=== PATIENT | male | born 1955 | race African-American/Black ===

== ENCOUNTER 2022-02-07 08:21 | Observation (INO) ==
--- NOTE | 2022-02-06 08:48 | Anesthesiology Consultation ---
Date of Service February 06, 2022 Assessment & Plan (1) Encounter for pre-operative examination: Chart Review Chart Review: Acceptable Risk for Surgery and Patient NOT seen in Pre Admission Testing Pt requiring admission post operatively. Plan for recheck with COVID [place] AM DOS due to possibility that patient may have a roommate. OR aware. [place] order placed - Due to age- will check CBC with diff DOS (not done preoperatively) Per nursing assessment 02/05/22, patient denies any recent travel. No known Covid positive exposures or Covid related symptoms. No known Covid infection in the past 90 days. Pt is fully vaccinated for Covid. Preop Covid testing 02/05/22= negative History Surgery Operation Date: 02/07/22 11:10 Proposed Procedures p Laparoscopic Robotic Assisted Radical Retropubic Prostatectomy, Possible Open, Possible Pelvic Lymph Node Dissection, Possible Suprapubic Tube Placement - Jonathan Sarabia MD Height/Weight Height: 5 ft 11.5 in Weight: 88.451 kg Allergies Allergy/AdvReac Type Severity Reaction Status Date / Time No Known Drug Allergies Allergy Verified 02/05/22 07:49 Medications Home Medications Medication Instructions Recorded Confirmed Last Taken amlodipine 10 mg tablet 10 mg PO QPM 12/26/21 02/05/22 Unknown aspirin 81 mg tablet,delayed 81 mg PO QPM 12/26/21 02/05/22 Unknown release (Adult Low Dose Aspirin) atorvastatin 10 mg tablet 10 mg PO QPM 12/26/21 02/05/22 Unknown hydrochlorothiazide 12.5 mg capsule 12.5 mg PO QPM 12/26/21 02/05/22 Unknown Past Medical History Medical History High cholesterol Hypertension Prostate cancer Past Family History Family History Father , 89yo Prostate cancer CHF (congestive heart failure) Mother , 78yo CHF (congestive heart failure) Sister No problems noted. Son No problems noted. Son No problems noted. Past Surgical History Surgical History History of colonoscopy Hx of cystoscopy with bx Hx of wisdom tooth extraction Social History Smoking Status: Never smoker Do You Dip or Chew Tobacco: No Hx Alcohol Use: Yes Alcohol type: beer alcohol intake frequency: a few times a week Hx Substance Use: No substance use type: does not use Testing Laboratory Results 02/04/22= SODIUM: 140 POTASSIUM: 3.8 CHLORIDE: 106 CO2: 31 BUN: 10 CREATININE: 1.1 GLUCOSE: 112 UA: Negative Electrocardiogram Date: 02/04/22 NSR with sinus arrhythmia at 68bpm Normal EKG per confirming provider Chest X-Ray Date: 02/05/22 Findings: + NAD Stress Test Date: 11/07/16 Type: exercise Stress EKG was negative for myocardial ischemia at 107% MPHR. Moderate level of exercise achieved. No symptoms reproduced with exercise. PVCs reproduced with exercise. Recommendations: Hypertensive response to exercise. Increase antihypertensive regimen.
[~2022-02-07 08:21] MED LIST: DEXAMETHASONE SOD INJ 4 MG/ML VIAL ONE; GLYCOPYRROLATE 0.2 MG/ML VIAL ONE; HEPARIN SOD 5,000 UNIT/0.5 ML VIAL SQ SCH; LACTATED RINGER'S 1,000 ML IV SCH; LIDOCAINE 2% 2 ML VIAL/AMP(20MG/ML) INFIL ONE; LR 15ML/HR IV SCH; MIDAZOLAM HCL 1 MG/ML 2ML VIAL ONE; NEOSTIGMINE METHYLSULFATE 1 MG/ML 10ML VIAL ONE; ONDANSETRON INJ 2 MG/ML 2 ML VIAL ONE; PROPOFOL IV EMULSION 10 MG/ML 20 ML VIAL IV ONE; ROCURONIUM BROMIDE 10 MG/ML 5 ML VIAL IV ONE; ceFAZolin 2000MG 2,000 MG/15 ML SYR IV SCH; fentaNYL citrate 100 MCG/2 ML VIAL ONE
[2022-02-07] MEDS ORDERED: BUPIVACAINE 0.5 % 5 MG/1 ML MPF 30ML VIAL ONE (08:40)
--- NOTE | 2022-02-07 08:49 | History & Physical Bridge Note ---
Date of Service February 07, 2022 History & Physical Bridge Note I have examined the patient, reviewed the History & Physical and in the interval since the performance of the History & Physical I have noted the following changes of clinical significance: no changes noted
[2022-02-07 09:12] LABS: Basophils # (auto) 0.07 K/uL (0-0.2); Basophils % (auto) 1.7 %; Eosinophils # (auto) 0.06 K/uL (0-0.50); Eosinophils % (auto) 1.4 %; Hematocrit (blood only) 45.5 % (40.1-51.0); Hemoglobin 15.3 g/dl (14.0-18.0); Immature Granulocytes # (auto) 0.01 K/uL (0.00-0.02); Immature Granulocytes % (auto) 0.2 %; Lymphocytes # (auto) 1.19 K/uL (1.2-3.4); Lymphocytes % (auto) 28.2 %; Mean Corpuscular Hemoglobin 31.3 pg (25.0-34.0); Mean Corpuscular Hgb Conc 33.6 g/dL (32.0-36.0); Mean Platelet Volume 9.5 fL (9.4-12.4); Monocytes % (auto) 14.2 %; Neutrophils # (auto) 2.29 K/uL (1.4-6.5); Neutrophils % (auto) 54.3 %; Platelet Count 175 K/uL (130-400); RDW Coefficient of Variation 13.8 % (11.5-14.5); RDW Standard Deviation 47.1 fL (36.4-46.3); Red Blood Count 4.89 M/uL (4.63-6.08); White Blood Count 4.22 K/ul (4.8-10.8)
[2022-02-07] MEDS ORDERED: ONDANSETRON INJ 2 MG/ML 2 ML VIAL IV PRN ×2 (09:21→15:48)
[2022-02-07] MEDS ORDERED: fentaNYL citrate 100 MCG/2 ML VIAL IV PRN (09:21)
[2022-02-07] MEDS ORDERED: HYDROmorphone INJ 2 MG/ML SYR/VIAL IV PRN (09:21)
[2022-02-07] MEDS ORDERED: PROMETHAZINE HCL 12.5 MG in SODIUM CHLORIDE 0.9% 50 ML IV PRN (09:21)
[2022-02-07] MEDS ORDERED: ePHEDrine sulfate 50 MG/ML AMP IV PRN (09:21)
[2022-02-07] MEDS ORDERED: ATROPINE SULFATE 0.1 MG/ML 10ML SYR IV PRN (09:21)
[2022-02-07] MEDS ORDERED: ROCURONIUM BROMIDE 10 MG/ML 5 ML VIAL IV ONE ×5 (10:51→13:08)
[2022-02-07] MEDS ORDERED: PROPOFOL IV EMULSION 10 MG/ML 20 ML VIAL IV ONE ×3 (10:55→13:08)
[2022-02-07] MEDS ORDERED: ePHEDrine sulfate 50 MG/ML AMP ONE (13:08)
[2022-02-07] MEDS ORDERED: ceFAZolin 2000MG 2,000 MG/15 ML SYR IV ONE (13:43)
[2022-02-07] MEDS ORDERED: fentaNYL citrate 100 MCG/2 ML VIAL ONE (14:36)
--- NOTE | 2022-02-07 15:10 | Operative Report ---
PG Post Operative Report Pre & Post Diagnosis Operation Date: 02/07/22 11:10 Pre-Op Diagnosis: Prostate Cancer Post-Op Diagnosis: Prostate Cancer I identified the patient and participated in the time-out.: Yes Procedure Operation Date: 02/07/22 11:10 Actual Procedures p Laparoscopic Robotic Assisted Radical Retropubic Prostatectomy, Bilateral Pelvic Lymph Node Dissection(Not Applicable) - Jonathan Sarabia MD Surgeon Jonathan Sarabia MD Admissions Counselor [facility] Estimated Blood Loss 100 Findings Consistent with Post-Op Diagnosis Specimens 1) periprostatic fat 2) prostate, vas deferens and seminal vesicles 3) right pelvic lymph nodes 4) left pelvic lymph nodes Drains Adng catheter per urethra with 10 mL in balloon Anesthesia Type General Complications none Disposition Accompanied Patient To Recovery: Yes Disposition: Recovery Room Indications This is a 66-year-old male, recently diagnosed with prostate cancer. After thorough discussion of his options, he presents to the OR today for robot- assisted radical prostatectomy and bilateral pelvic lymph node dissection. Description of Procedure The patient was identified in the preoperative holding area and informed consent was confirmed. He was then brought to the operating room where general anesthesia was initiated. He was placed supine on the operating room table with all pressure points appropriately padded. His abdomen and genitalia were prepped and draped in the usual sterile fashion and a timeout was performed. A 2 cm incision was made above the umbilicus and then a Veress needle was used to obtain access to the abdomen. Proper position was confirmed with the drop test and low initial insufflation pressure. The abdomen was insufflated with CO2 to a pressure of 12 mmHg. An 8 mm robotic port was placed in the incision and the robotic camera was inserted. The abdominal cavity was surveyed, demonstrating minimal adhesions and no injury to the abdominal viscera. The remaining robotic ports were placed under direct visualization, with 2 robotic ports on the left side and 1 robotic port on the right. A 12 mm design assistant port was placed on the right side as well, and a 5 mm design assistant port was placed in the right upper quadrant. The robot was then docked. There was some minor adhesions of the sigmoid to the left lateral wall of the pelvis. These adhesions were divided sharply. Using electrocautery, the bladder was then dropped from the anterior wall of the abdomen, exposing the space of Retzius. This dissection was carried down to expose the pelvic brim and subsequently the anterior surface of the prostate and the endopelvic fascia. The fat overlying the anterior of the prostate was removed and sent for pathologic analysis, labeled as 'periprostatic fat'. The endopelvic fascia was then divided on each side to expose the lateral aspects of the prostate and the lateral aspects of the pedicles. 3-0 V-Loc suture was used to ligate the dorsal venous complex to prevent backbleeding in subsequent steps. The fourth arm of the robot was then used to put some gentle traction on the bladder, and the bladder neck was identified. Using electrocautery, the anterior bladder neck was dissected to expose the Dang catheter, whose tip was removed from the bladder and held anteriorly. The posterior bladder neck dissection was then completed. This dissection was complicated by the presence of a median lobe of the prostate intruding into the bladder. The bladder mucosa was divided on the posterior aspect of the median lobe to expose the posterior surface of the prostate while maintaining a small bladder neck. At this point bilateral vas deferens were exposed and isolated. The vas deferens were cau terized and then divided. Bilateral seminal vesicles were dissected out as well. Denonvilliers fascia was then divided and the posterior prostate dissection was carried up as far as possible toward the urethra. The pedicles were then divided using combination of clips and sharp dissection, trying to use minimal electrocautery. On the right side a partial nerve sparing approach was performed. On the left side, due to the presence of higher grade prostate cancer, a non-nerve sparing approach was used. Attention was turned anteriorly and the dorsal venous complex was divided using sharp dissection and electrocautery. There was some residual bleeding from the dorsal venous complex which was stopped with a suture ligature. The urethra was isolated and then divided sharply and the remaining attachments of the prostate to the base of the pelvis were divided. At this point, the prostate was free and was placed in a specimen bag. Bilateral pelvic lymph node dissection was then performed, and the yuko tissue was sent for pathologic analysis. The pelvis was inspected and meticulous hemostasis was ensured. There was mild persistent bleeding from the pedicles which was oversewn using a 4-0 Monocryl suture. 3-0 Double-armed V-Loc suture was then used to re-anastomose the bladder neck with the urethra. Once this was complete, the anastomosis was tested by instilling 120 mL of normal saline into the bladder. Satisfied that the anastomosis was watertight, the new catheter balloon was inflated with 10 mL of normal saline. The robot was then undocked. The supraumbilical incision was extended and the prostate was extracted. 0 Vicryl suture was then used to close the fascia at this incision. All skin incisions were closed with 4-0 Monocryl suture and then a layer of Dermabond was applied. The patient was then awakened from anesthesia and was brought to the PACU in stable condition. I attest to the content of the Intraoperative Record and any orders documented therein. Any exceptions are noted below.
--- NOTE | 2022-02-07 15:28 | Anesthesiology Progress Note ---
Date of Service February 07, 2022 Anesthesia Post Procedure Vital Signs Vital Signs: Temp Pulse Resp BP Pulse Ox O2 Del Method O2 Flow Rate 02/07/22 15:25 97.3 F L 78 12 123/72 97 Room Air 02/07/22 15:15 83 18 130/79 100 Oxymask 12 02/07/22 15:05 82 22 129/77 100 Oxymask 02/07/22 14:56 98.1 F 88 18 119/77 98 Oxymask 02/07/22 08:52 98.2 F 82 20 172/96 H 96 Room Air Pain Intensity Abdomen: Pain Intensity: 3 Transfer of Care Handoff Completed per policy Notes Mental Status: alert / awake / arousable and participated in evaluation Patient Amnestic to Procedure: Yes Nausea / Vomiting: adequately controlled Pain: adequately controlled Airway Patency, RR, SpO2: stable & adequate BP & HR: stable & adequate Hydration State: stable & adequate Anesthetic Complications: no major complications apparent and Pt Satisfied with anesthetic care
[2022-02-07] MEDS ORDERED: POLYETHYLENE (MIRALAX) 17 GM PACK PO PRN (15:48)
[2022-02-07] MEDS ORDERED: IBUPROFEN 200 MG TAB PO PRN (15:48)
[2022-02-07] MEDS ORDERED: oxyCODONE HCL IR 5 MG TAB (IMMEDIATE RELEASE) PO PRN ×2 (15:48)
[2022-02-07] MEDS ORDERED: MoRPHine SULFATE 4 MG/ML 1 ML CARP\\VIAL IV PRN (15:48)
[2022-02-07] MEDS ORDERED: MoRPHine SULFATE 2 MG/ML CARP IV PRN (15:48)
[2022-02-07] MEDS: ceFAZolin 2000MG 2,000 MG/15 ML SYR IV SCH (17:19)
[2022-02-07] MEDS: LACTATED RINGER'S 1,000 ML IV SCH ×2 (17:19→21:38)
[2022-02-07] MEDS: DOCUSATE SODIUM 100 MG CAP PO SCH (20:27)
[2022-02-07] MEDS: ACETAMINOPHEN 325 MG TAB PO SCH (20:28)
[2022-02-07] MEDS: HEPARIN SOD 5,000 UNIT/0.5 ML VIAL SQ SCH (20:29)
[2022-02-07] MEDS ORDERED: ATORVASTATIN 10 MG TAB PO SCH (21:00)
[2022-02-07] MEDS ORDERED: hydroCHLOROthiazide 25 MG TAB PO SCH (21:00)
[2022-02-07] MEDS ORDERED: amLODIPine BESYLATE 5 MG TAB PO SCH (21:00)
[2022-02-08] MEDS: ceFAZolin 2000MG 2,000 MG/15 ML SYR IV SCH (00:22)
[2022-02-08] MEDS: ACETAMINOPHEN 325 MG TAB PO SCH ×2 (02:28→09:41)
[2022-02-08] MEDS: LACTATED RINGER'S 1,000 ML IV SCH (06:52)
--- NOTE | 2022-02-08 08:56 | Urology Progress Note ---
Date of Service February 08, 2022 Assessment & Plan (1) Prostate cancer: Plan: Doing well, POD#1 from robot-assisted radical prostatectomy Anticipate he will be ready for discharge today assuming breakfast goes well and he is able to ambulate. He will maintain the catheter for 10 to 14 days Will arrange further follow-up after that. Admission and Anticipated Discharge Date Admission Date: February 07, 2022 Subjective 66-year-old male, postop day 1 from robot-assisted radical prostatectomy Denies any fevers or chills Minimal pain this morning, taking Tylenol and ibuprofen. Had some nausea overnight but feeling better this morning, ready to try diet Has not been up and ambulating yet Physical Exam Physical Exam: Well-appearing, NAD Gastrointestinal (Abdomen): Soft, nondistended, really tender to palpation. Laparoscopic incisions covered with Dermabond with no bruising. Genitourinary: Dang catheter in place draining clear phuc urine Results & Data ([facility]) Vital Signs (Past 12 Hours) Vital Signs Temp Pulse Resp BP Pulse Ox O2 Del Method 02/08/22 07:30 Room Air 02/08/22 07:17 37.1 C 88 16 130/82 94 Room Air 02/08/22 03:18 37.3 C 85 16 124/72 93 Room Air 02/07/22 23:18 37.2 C 93 H 18 110/71 92 Room Air PG Care Time/CCT Total # of Minutes Spent Total Time Spent with Patient: Total time spent is greater than 50% in coordination of care (as documented) at patient's floor/unit and/or counseling patient: Coding Level of Care Code None Diagnoses Prostate cancer C61
[2022-02-08 08:58] LABS: Basophils # (auto) 0.01 K/uL (0-0.2); Basophils % (auto) 0.1 %; Hematocrit (blood only) 39.2 % (40.1-51.0); Hemoglobin 13.7 g/dl (14.0-18.0); Immature Granulocytes # (auto) 0.03 K/uL (0.00-0.02); Immature Granulocytes % (auto) 0.3 %; Lymphocytes # (auto) 0.91 K/uL (1.2-3.4); Lymphocytes % (auto) 10.6 %; Mean Corpuscular Hemoglobin 31.3 pg (25.0-34.0); Mean Corpuscular Hgb Conc 34.9 g/dL (32.0-36.0); Mean Corpuscular Volume 89.5 fL (80.0-100.0); Mean Platelet Volume 9.9 fL (9.4-12.4); Monocytes # (auto) 1.12 K/uL (0.24-0.82); Neutrophils # (auto) 6.54 K/uL (1.4-6.5); Platelet Count 181 K/uL (130-400); RDW Coefficient of Variation 14.1 % (11.5-14.5); RDW Standard Deviation 45.7 fL (36.4-46.3); Red Blood Count 4.38 M/uL (4.63-6.08); White Blood Count 8.61 K/ul (4.8-10.8)
--- NOTE | 2022-02-08 09:02 | Discharge Summary ---
Date of Service February 08, 2022 Admission HPI Per Admitting Provider This is a 66-year-old male recently diagnosed with prostate cancer. After thorough discussion of treatment options he presented to the OR on 02/07/2022 for robot-assisted radical prostatectomy and bilateral pelvic lymphadenectomy. For more details of the procedure see operative report. He was admitted postoperatively in good condition. Admission Exam Per Admitting Provider Constitutional well developed and well nourished; no acute distress Eyes + anicteric sclerae; pupils not irregular Respiratory normal respiratory effort; no respiratory distress, does not use accessory muscles and no cough Cardiovascular well perfused Gastrointestinal (Abdomen) Inspection/Auscultation: abdomen normal to inspection; abdomen not distended Musculoskeletal Extremities: extremities normal to inspection Skin normal turgor; no rashes and no lesions Neurologic moves all extremities and awake Psychiatric Orientation: alert and oriented x 3 Principal Diagnosis Prostate cancer Discharge Exam Well-appearing, NAD Gastrointestinal (Abdomen) Abdomen soft, nondistended, appropriately tender to palpation. Dermabond in place over incisions. Genitourinary Romero catheter in good position draining clear phuc urine. Discharge Data Allergies Allergy/AdvReac Type Severity Reaction Status Date / Time No Known Drug Allergies Allergy Verified 02/07/22 08:51 Procedures Performed Operation Date: 02/07/22 11:10 Actual Procedures p Laparoscopic Robotic Assisted Radical Retropubic Prostatectomy, Bilateral Pelvic Lymph Node Dissection(Not Applicable) - Jonathan Sarabia MD Hospital Course (1) Prostate cancer: Robot-assisted radical prostatectomy was performed on 02/07/2022. Patient tolerated the procedure well. On postop day 1 he was tolerating a diet, ambulating and his pain was well controlled. He was discharged home in good condition. Total Time Total Time Spent Total Time Spent (In Minutes): 15 Discharge Plan Discharge Items Patient Disposition: Home - Self-Care Reason For Visit: Prostate Cancer Discharge Diagnosis: Prostate cancer Activity: Per Instructions section Non-emergency contact: Urologist Call non-emergency contact if: your pain is not controlled and your temperature is above 101 Follow-up/Referrals: Yosi Renteria DO [Primary Care Provider] - Diet: Regular Addtl Attending Provider Instructions: The surgery you had was: Robot-assisted radical prostatectomy with bilateral pelvic lymph node dissection. Please take all medications as prescribed and keep all follow-ups as scheduled. Please call our office at [phone] with any questions, concerns or need to reschedule appointments for any reason. We are happy to assist you Medications: Please take all medications as prescribed. For pain control, you can take tylenol every 6 hours. You can also take ibuprofen every 6 hours. If you have been prescribed a narcotic pain medication, please take this according to the instructions on the label. You have been prescribed a single dose of antibiotics (Bactrim) to be taken 1 hour prior to your appointment for romero catheter removal. Activity: We recommend having someone with you for the first few days after surgery to help care for you. For the first 2 weeks after surgery, we would like you to get up and walk around your house. However, we recommend limit physical activity that would increase your heart rate. This will allow your body to rest and heal. Take naps if you feel tired. Don't lift anything heavier than 10 pounds, mow the law or ride a bicycle until your follow-up appointment. Please avoid long car rides. Home Care: Unless directed otherwise, drink 6 to 8 glasses of water a day (enough to keep your urine light colored). This will also help keep a healthy flow of urine. We recommend using a stool softener such as colace or miralax for the first two weeks to avoid constipation. Romero Catheter or Suprapubic Catheter care: Keep the catheter well secured with either a leg back or leg strap with large bag. Empty your bag when it's about half full. You may notice some blood in the bag. This is normal after surgery and while the catheter is in place. Use mild soap (such as Dove or Dial) and water to wash the catheter and the head of your penis daily, or more frequently if needed. Return to your normal diet, we encourage good protein intake to promote healing. You may shower as normal. Please avoid tub baths or soaking until catheter removed and incisions well healed. Wearing sweat pants while you have the catheter is recommended, they will be more comfortable. Follow-up We will have you come to the office in approximately 10-14 days for catheter removal. - Please remember to take your dose on antibiotics 1 hour prior to this appointment. At this visit we will plan to review the pathology results We will schedule an office visit in approximately 3 months with PSA prior. Call [facility] at [phone] right away if you have any of the following: Chest pain or trouble breathing (call 911 or go to the hospital) Fever of 101F or higher, uncontrolled vomiting Heavy bleeding, clots, or bright red blood from the catheter Catheter that falls out or stops draining Foul-smelling discharge from your catheter Redness, swelling, warmth, or increased pain at your incision site Drainage, pus, or bleeding from your incision Pending Studies at Discharge: No Stand-Alone Forms: [facility], Smoking Cessation Medications and DC Order Prescriptions: New sulfamethoxazole-trimethoprim [Bactrim DS] 800-160 mg tablet 1 tab PO ONCE 1 Days Qty: 1 0RF oxycodone 5 mg tablet 5 mg PO Q6H PRN (Reason: pain) Qty: 6 0RF Rx Instructions: for acute post-surgical pain, not managed by tylenol / ibuprofen Continued aspirin [Adult Low Dose Aspirin] 81 mg tablet,delayed release (DR/EC) 81 mg PO QPM atorvastatin 10 mg tablet 10 mg PO QPM amlodipine 10 mg tablet 10 mg PO QPM hydrochlorothiazide 12.5 mg capsule 12.5 mg PO QPM Discharge Orders: Discharge Order (Routine); Ordered 02/08/22 Ordered By: Jonathan Sarabia Admission Data Admit Date/Time: 02/07/22 15:02 Attending Provider: Jonathan Sarabia Admit Provider: Jonathan Sarabia Primary Care Provider: Yosi Renteria Coding Level of Care Code D/C DAY MANAGEMENT <30 MINS Diagnoses Prostate cancer C61
[2022-02-08 09:09] LABS: BUN Creatinine Ratio 13.7 (10-20); Calcium 8.7 mg/dl (8.5-10.1); Creatinine Clr Calc Pharmacy 80.9 ml/min; Est GFR (African American) 87.7 ml/min; Est GFR (Non-African American) 75.7 ml/min
[2022-02-08] MEDS: DOCUSATE SODIUM 100 MG CAP PO SCH (09:41)
[2022-02-08] MEDS: HEPARIN SOD 5,000 UNIT/0.5 ML VIAL SQ SCH (09:41)
[2022-02-08] MEDS ORDERED: ASPIRIN 81 MG ECTAB PO SCH (21:00)
== END 2022-02-08 15:04 | disposition home or self-care (01) ==
LOC: ASU 08:21 → INTOOBSV 15:02 → 3N 15:02